=== PATIENT | female | born 1995 | race Two or more races ===

== ENCOUNTER 2024-12-31 07:26 | Outpatient (CLI) | payer OTHER | END 2024-12-31 07:38 | disposition home or self-care (01) | LOC: SONOGRAMA 07:26 | PROVIDERS: ATTEND Obstetrics & Gynecology Gynecology | DX: N64.4 Mastodynia (principal); N60.11 Diffuse cystic mastopathy of right breast; N63.0 Unspecified lump in unspecified breast ==